=== PATIENT | female | born 1980 | race Caucasian/White ===

== ENCOUNTER 2018-10-21 16:18 | Emergency (ER) | payer BC ==
[~2018-10-21] VITALS: Ht 170.2 cm; Wt 74.4 kg
[2018-10-21 16:34] VITALS: Ht 170.2 cm; Wt 74.4 kg
[2018-10-21 22:44] VITALS: BP 100/63
== END 2018-10-21 22:44 | disposition home or self-care (01) ==
LOC: ED 16:18
DX: G89.29 Other chronic pain (principal); R10.32 Left lower quadrant pain; Z88.2 Allergy status to sulfonamides; Z98.84 Bariatric surgery status
CPT/HCPCS: J1885; Q0092

== ENCOUNTER 2020-10-03 20:18 | Emergency (ER) | payer BC ==
[~2020-10-03] VITALS: Ht 170.2 cm; Wt 72.1 kg
[2020-10-03 20:23] VITALS: Ht 170.2 cm; Wt 72.1 kg
[2020-10-03 23:43] VITALS: BP 104/69
== END 2020-10-03 23:43 | disposition home or self-care (01) ==
LOC: ED 20:18
DX: M54.5 Low back pain (principal); Z88.0 Allergy status to penicillin; Z88.1 Allergy status to other antibiotic agents; Z88.2 Allergy status to sulfonamides; Z98.84 Bariatric surgery status
CPT/HCPCS: J1885; Q0162